=== PATIENT | female | born 1980 | race Caucasian/White ===

== ENCOUNTER → 2017-03-09 | Outpatient (CLI) | payer MEDICARE, BC ==
--- NOTE | ~2017-03-09 | MY26 ---
[facility] A Service of [facility] & [facility] RADIOLOGY TEXT RESULTS PATIENT: IGNACIO ALLISON LOCATION: [facility] : [birth year] UNIT #: [id number] AGE: [address]: Natty Allen APRN SEX: F ORDER DR: [id number] [facility] [address]. [place], [place] [address] [id number] O MR#: [id number] Acc #: [id number] NAME: IGNACIO ALLISON : 1980 SEX: F STUDY DATE/TIME: 03/09/2017 9:02 UNIT: [facility] ROOM: STUDY DESCRIPTION: [facility] DIAGNOSTIC W/ CAD BILAT Attending Physician: Natty Allen A.P.R.N. Referring Physician: Natty Allen A.P.R.N. Ordering Physician: Natty Allen A.P.R.N. Primary Care Physician: Natty Allen A.P.R.N. MEDICAL IMAGING REPORT This report is preliminary unless electronic signature is present EXAM Bilateral diagnostic mammogram with CAD and bilateral targeted breast ultrasound, 03/09/2017 INDICATION 36-year-old female complaining of a palpable abnormality in the left breast and left breast pain for the past 6 months. Pea-sized nodule. Breast discharge on the left (yellowish). No personal history of breast cancer. Family history positive in a paternal grandmother. No surgeries. TECHNIQUE Bilateral digital diagnostic mammogram was performed with CC, MLO and true lateral technique. Spot compression views were obtained on the left. Targeted bilateral breast ultrasound was performed for the area of patient pain on the left and for asymmetrically prominent breast tissue on the right. COMPARISON No comparisons. This is her baseline study. FINDINGS MAMMOGRAPHIC FINDINGS: The breast parenchyma is heterogeneously dense. This degrades sensitivity of screening mammography. The pattern is symmetric. Marker overlies area of patient palpable concern in the upper outer left breast deep to the marker. No focal mammographic mass is identified. No suspicious calcifications. No adenopathy. Compression views of the left breast in the area of patient symptoms were also negative. Incidental benign calcifications bilaterally. There is mildly asymmetrically prominent probable fibroglandular tissue in the upper inner right breast. Ultrasound of both breasts was then performed in a targeted fashion. ULTRASOUND FINDINGS: The patient was initially scanned independently by [facility]. [facility] A Service of [facility] & [facility] RADIOLOGY TEXT RESULTS PATIENT: IGNACIO ALLISON LOCATION: [facility] : [birth year] UNIT #: [id number] AGE: [address]: Natty Allen APRN SEX: F ORDER DR: the technologist and then rescanned in my presence. LEFT BREAST: Limited physical exam (with patient consent) of the left breast was performed and was negative in the area of patient palpable concern. Imaging of the patient's area of pain symptoms and palpable concern on the left demonstrates some mildly prominent ducts, some of which have faint internal debris within them. One of these areas simulates a complicated cyst on the submitted images at 11 o'clock but is best demonstrated to represent a duct under real-time surveillance. There is no persistent area of abnormal shadowing or focal cystic or solid nodule in the left breast in the area of patient concern. Imaging of the subareolar left breast demonstrates mildly prominent ducts but is otherwise negative as well. RIGHT BREAST: Asymmetric probable fibroglandular dominance was noted in the upper inner right breast mammographically. Ultrasound of the upper inner right breast was performed and is negative, concordant with mammographic imaging. There is no dominant nodule, cyst or persistent area of abnormal shadowing. Incidental small cyst at 3 o'clock in the right breast only seen with ultrasound measures 7.0 x 5.0 mm. Absent new or worsening symptoms in either breast, clinical considerations should determine additional imaging at this time. Findings and recommendations were discussed with the patient. She was encouraged to begin an annual screening mammography regimen at age 40 or sooner based upon risk factors. IMPRESSION 1. Benign bilateral mammogram and targeted breast ultrasound. Clinical considerations to determine additional imaging at this time. 2. There is dense breast tissue bilaterally. Mildly prominent ducts are present bilaterally. These have benign features. 3. Incidental cyst in the right breast only identified with ultrasound. 4. The patient should plan on beginning a screening mammography regimen at age 40 or sooner based upon risk factors as described above. Findings and recommendations were discussed with the patient. Patients over the age of 40 are entered into a reminder system with target due date for the next mammogram. A result letter will also be sent to the patient. BIRADS: 2 Benign Finding Dictated by... Benjamin Calero M.D. THIS IS AN ELECTRONICALLY VERIFIED REPORT Benjamin Calero M.D. at 03/09/2017 5:24 PM MORE/adolph [facility]. [facility] A Service of [facility] RADIOLOGY TEXT RESULTS PATIENT: IGNA[facility]IO ALLISON [id number] [birth year] UNIT #: [id number] AGE: [address]: Natty Allen APRN SEX: F ORDER DR: TD: 03/09/2017 10:59 JOB #: [id number] MEDICAL IMAGING REPORT Page 1 of 1 COPY
--- NOTE | ~2017-03-09 | US17 ---
[facility] A Service of [facility] & [facility] RADIOLOGY TEXT RESULTS PATIENT: IGNACIO ALLISON LOCATION: [facility] : 78 UNIT #: [id number] AGE: [address]: Natty Allen APRN SEX: F ORDER DR: [id number] [facility] [address] [place], [place] [address] [id number] O MR#: [id number] Acc #: [id number] NAME: IGNACIO ALLISON : 1980 SEX: F STUDY DATE/TIME: 03/09/2017 9:27 UNIT: [facility] ROOM: STUDY DESCRIPTION: US Breast Bilateral Attending Physician: Natty Allen A.P.R.N. Referring Physician: Natty Allen A.P.R.N. Ordering Physician: Natty Allen A.P.R.N. Primary Care Physician: Natty Allen A.P.R.N. MEDICAL IMAGING REPORT This report is preliminary unless electronic signature is present EXAM Targeted bilateral breast ultrasound, 03/09/2017 HISTORY FINDINGS Please see the report from the bilateral diagnostic mammogram same date for results. Patients over the age of 40 are entered into a reminder system with target due date for the next mammogram. A result letter will also be sent to the patient. BIRADS: 2 Benign Finding Dictated by... Benjamin Calero M.D. THIS IS AN ELECTRONICALLY VERIFIED REPORT Benjamin Calero M.D. at 03/09/2017 5:24 PM Pedro TD: 03/09/2017 11:21 JOB #: [id number] MEDICAL IMAGING REPORT Page 1 of 1 COPY
== END | disposition home or self-care (01) ==
LOC: CMAM 03-08 10:00
DX: N64.4 Mastodynia (principal)
CPT/HCPCS: 76641; G0204